=== PATIENT | female | born 2000 | race Caucasian/White ===

== ENCOUNTER 2020-07-24 21:03 | Emergency (ER) | payer OTHER ==
[~2020-07-24] VITALS: Ht 167.6 cm; Wt 120.2 kg
[2020-07-24 21:15] VITALS: BP 129/86
[2020-07-24] MEDS ORDERED: NORCO 5-325 TA1 EAC2 PO ×2 (21:28→21:29)
[2020-07-24] MEDS ORDERED: IBUPROFEN 800800 M1 PO (21:28)
== END 2020-07-24 21:35 | disposition home or self-care (01) ==
LOC: M.ERS 21:03
DX: T22.211A Burn of second degree of right forearm, initial encounter (principal); T23.271A Burn of second degree of right wrist, initial encounter; X12.XXXA Contact with other hot fluids, initial encounter; Y93.G3 Activity, cooking and baking; Y92.098 Other place in other non-institutional residence as the place of occurrence of the external cause; Y99.8 Other external cause status